=== PATIENT | female | born 1950 | race Caucasian/White ===

== ENCOUNTER 2018-07-29 06:00 | Outpatient (RCR) | payer MEDICARE ==
[~2018-07-29 06:00] MED LIST: ACHYD1T PO; AMIT25TA9; AMIT25TA9 PO; AMITRIPTYLINE; ASP325TEC PO; CEPH500C PO; CLD600T PO; DCS100C PO; DIAZ-345 PO; DIGO250T PO; EST.625T; EST.625T PO; FLUO20CA25; FROV2.5T3 PO; FROV2.5T6 PO; GLUC1CAP37; HYDR-2889 PO; HYDR-707 PO; HYDR1TAB8 OP; IBP800T PO; MELO-195 PO; METO25TA PO; METO25TA2 PO; MULT-608; NAPR220C11 PO; OMEP20CA12 PO; OMEP20CA6; OMG1KC PO; ONDAN4ODT PO; SUMA25TA3 PO; [UNRECOGNIZED DRUG - OTHER]; calcium
== END 2018-07-30 | disposition home or self-care (01) ==
LOC: CR3 06:00
PROVIDERS: ATTEND Family Medicine
DX: Z29.8 Encounter for other specified prophylactic measures (principal)

== ENCOUNTER 2018-08-13 07:47 | Outpatient (RCR) | payer MEDICARE | END 2018-09-10 | disposition home or self-care (01) | LOC: CR3 07:47 | PROVIDERS: ATTEND Family Medicine | DX: Z29.8 Encounter for other specified prophylactic measures (principal) ==

== ENCOUNTER 2018-09-30 06:00 | Outpatient (RCR) | payer MEDICARE | END 2018-10-16 | disposition home or self-care (01) | LOC: CR3 06:00 | PROVIDERS: ATTEND Family Medicine | DX: Z29.8 Encounter for other specified prophylactic measures (principal) ==

== ENCOUNTER → 2020-10-07 | Outpatient (CLI) | payer MEDICARE, OTHER ==
--- NOTE | 2020-10-07 12:44 | Diagnostic Imaging Report ---
INDICATION: Right foot pain. COMPARISON: None. FINDINGS: Three views of the right foot demonstrate no acute fracture or dislocation. There are no focal osseous lesions. There is no soft tissue swelling. Joint spaces are well maintained. No radiopaque foreign bodies are seen. IMPRESSION: No acute fractures or dislocations of the right foot. Dictated by: Dictated on workstation # [id number]
== END ==
LOC: RAD 11:11
PROVIDERS: ATTEND Family Medicine
DX: M79.671 Pain in right foot (principal)
CPT/HCPCS: 73630

== ENCOUNTER → 2020-11-08 | Outpatient (CLI) | payer MEDICARE, OTHER ==
--- NOTE | 2020-11-08 12:53 | Diagnostic Imaging Report ---
INDICATION: Routine screening. Comparison is made with prior mammogram 06/01/2014 and 07/26/2011. 2-D and 3-D bilateral screening mammography was performed with CAD. Both breasts are heterogeneously dense, limiting the sensitivity of mammography. Benign calcifications in both breasts again noted. No mass or malignant appearing microcalcifications are seen. Axillae are unremarkable. IMPRESSION: BI-RADS Category 2 No mammographic features suspicious for malignancy are identified. ACR BI-RADS Category 2: Benign findings. Result letter will be mailed to the patient. Note: At least 10% of breast cancer is not imaged by mammography. Dictated by: Dictated on workstation # [id number]
== END ==
LOC: RAD 10:24
PROVIDERS: ATTEND Family Medicine
DX: Z12.31 Encounter for screening mammogram for malignant neoplasm of breast (principal)
CPT/HCPCS: 77063; 77067